=== PATIENT | female | born 1995 | race Two or more races ===

== ENCOUNTER 2023-10-26 10:25 | Emergency (ER) | payer OTHER, SELFPAY ==
[2023-10-26] VITALS (7 sets, daily range): BP systolic 77–143; BP diastolic 26–90; PULSE 51–68; RESP 14–18; TEMP 36.3–36.6; O2SAT 95–99; BMI 37.8
[2023-10-26 11:18] LABS: MANUAL DIFF FLAG NO
[2023-10-26 11:19] LABS: Basophils Percent Auto 0.4 % (0-2); Eosinophils Percent Auto 0.1 % (0-4); Hematocrit 32.3 % (37.0-47.0); Hemoglobin 10.4 g/dl (12.0-16.0); Imm Gran Abs Auto 0.04 X10*3/uL (0.00-0.03); Imm Gran Pct Auto 0.6 % (0.0-0.4); Lymphocytes Percent Auto 14.9 % (20-40); Mean Corpuscular HGB Conc 32.2 g/dl (31.0-35.0); Mean Corpuscular Hemoglobin 24.9 pg (27.0-33.0); Mean Corpuscular Volume 77.3 fL (80.0-98.0); Mean Platelet Volume 9.3 fL (9.4-12.3); Monocytes Absolute Auto 0.6 X10*3/uL (0.1-1.2); Monocytes Percent Auto 9.1 % (2-11); Neutrophils Absolute Auto 5.2 x10*3/uL (2.0-8.3); Neutrophils Percent Auto 74.9 % (45-73); Platelet Count 267 X10*3/uL (160-400); Red Blood Count 4.18 X10*6/uL (4.20-5.50); Red Cell Distribution Width 18.2 % (11.0-16.0); White Blood Count 6.9 X10*3/uL (4.8-10.8)
[2023-10-26] MEDS: 0.9 % Sodium Chloride 1,000 ML 999 ML IV ×3 (11:21→12:38)
--- NOTE | 2023-10-26 11:27 | MHC.EDTECH ---
Patient made aware that urine sample is required. Provided patient with urine cup and wipes, patient expressed understanding in clean catch urine.
--- NOTE | 2023-10-26 11:31 | PC.NURSE ---
Pt. refusing additional BP monitoring. Education provided as to the importance of repeated monitoring while her BP is at a critical level.
[2023-10-26 11:35] LABS: Alanine Aminotransferase 29 U/L (0-31); Albumin Level 4.3 g/dL (3.5-5.0); Alkaline Phosphatase 76 U/L (39-117); Anion Gap 12 (12-20); Aspartate Amino Transferase 28 U/L (5-31); Bilirubin Total 0.7 mg/dL (0.0-1.0); Blood Urea Nitrogen 9 mg/dL (9-16); Calcium 9.5 mg/dL (8.4-10.2); Carbon Dioxide 25 mmol/L (22-29); Chloride 108 mmol/L (96-108); Creatinine Clr Calc Pharmacy 131.6; Estimated Glomerular Filt Rate > 60; Ethanol < 10 mg/dL; Glucose Random 117 mg/dL (60-115); Sodium 141 mmol/L (135-145); Total Protein 7.4 g/dL (6.5-8.0)
[2023-10-26 11:39] LABS: HCG Quantitative < 2 mIU/mL
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
[2023-10-26] MEDS: methADONE HCl 20 MG/2 ML ORAL.CONC 30 MG PO (14:40)
== END 2023-10-26 15:27 | disposition home or self-care (01) ==
PROVIDERS: Physician Assistant; Emergency Provider Emergency Medicine
DX: F11.20 Opioid dependence, uncomplicated (principal); M79.672 Pain in left foot; Z59.00 Homelessness unspecified
CPT/HCPCS: 36415; 80053; 80307; 84702; 85025; 96360; 96361; 99284

== ENCOUNTER 2023-12-02 00:18 | Emergency (ER) | payer OTHER, SELFPAY ==
[2023-12-02] VITALS (7 sets, daily range): BP systolic 114–144; BP diastolic 53–92; PULSE 83–117; RESP 16–18; TEMP 36.4–36.9; O2SAT 95–99; BMI 37.8
--- NOTE | ~2023-12-02 | CT_ITS ---
EXAMINATION: CT ABDOMEN AND PELVIS WITH CONTRAST CLINICAL INFORMATION: Right lower quadrant tenderness COMPARISON: None available. TECHNIQUE: Multidetector volumetric images were obtained from the superior aspect of the liver through the pubic symphysis following administration 85 mL of Omnipaque 350 intravenous contrast. Sagittal and coronal reformatted images were obtained on the technologist's workstation. Oral contrast: No This CT examination was performed using dose optimization techniques as appropriate, variously including the following: *Automated exposure control *Adjustment of mA and/or kV according to patient size (this includes techniques or standardized protocols for targeted exams where dose is matched to indication/reason for exam; i.e. 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 L5-S1 disc space narrowing. LUNG BASES: The visualized lung bases are unremarkable. LIVER, GALLBLADDER, AND BILIARY TREE: The liver is normal in size, shape, and attenuation. No focal hepatic lesion or biliary ductal dilatation is present. The gallbladder has been surgically removed. PANCREAS: Unremarkable. SPLEEN: Unremarkable. ADRENAL GLANDS: Unremarkable. KIDNEYS AND URETERS: The kidneys are normal in size, shape, and attenuation. No hydronephrosis, hydroureter, or calculi seen. No perinephric stranding. BLADDER: Decompressed but unremarkable. GASTROINTESTINAL TRACT: Small hiatal hernia. Decompressed stomach. Nonobstructive bowel pattern. Unremarkable appendix. Moderate fecal retention.. ABDOMINAL WALL: Fat filled umbilical hernia. LYMPH NODES: No pathologic retroperitoneal lymphadenopathy. Multiple prominent mesenteric lymph nodes. VASCULAR: Unremarkable. PELVIC VISCERA: Right adnexal soft tissue density with 2.8 cm cystic region, likely ovarian. Unremarkable uterus. OSSEOUS STRUCTURES: Lumbar lordotic straightening. L5-S1 disc space narrowing and spurring. CT/CT abdomen pelvis w IV con IMPRESSION: Prominent right adnexal soft tissue structure, likely ovarian. Consider pelvic ultrasound. Fleischner guidelines were followed.
--- NOTE | 2023-12-02 00:50 | PC.NURSE ---
pt states, she didn't have here methadone, on Friday
[2023-12-02 01:11] LABS: MANUAL DIFF FLAG NO
[2023-12-02 01:12] LABS: Basophils Percent Auto 0.3 % (0-2); Eosinophils Percent Auto 0.2 % (0-4); Hematocrit 41.5 % (37.0-47.0); Hemoglobin 13.3 g/dl (12.0-16.0); Imm Gran Abs Auto 0.06 X10*3/uL (0.00-0.03); Imm Gran Pct Auto 0.5 % (0.0-0.4); Lymphocytes Absolute Auto 2.1 X10*3/uL (1.2-4.9); Mean Corpuscular Hemoglobin 23.8 pg (27.0-33.0); Mean Corpuscular Volume 74.4 fL (80.0-98.0); Mean Platelet Volume 9.4 fL (9.4-12.3); Monocytes Absolute Auto 0.7 X10*3/uL (0.1-1.2); Monocytes Percent Auto 6.1 % (2-11); Neutrophils Absolute Auto 9.2 x10*3/uL (2.0-8.3); Neutrophils Percent Auto 75.9 % (45-73); Platelet Count 285 X10*3/uL (160-400); Red Blood Count 5.58 X10*6/uL (4.20-5.50); Red Cell Distribution Width 18.7 % (11.0-16.0); White Blood Count 12.2 X10*3/uL (4.8-10.8)
[2023-12-02 01:31] LABS: Alanine Aminotransferase 27 U/L (0-31); Albumin Level 5.1 g/dL (3.5-5.0); Alkaline Phosphatase 84 U/L (39-117); Anion Gap 18 (12-20); Aspartate Amino Transferase 25 U/L (5-31); Bilirubin Direct 0.2 mg/dL (0.0-0.5); Bilirubin Total 0.8 mg/dL (0.0-1.0); Blood Urea Nitrogen 11 mg/dL (9-16); Calcium 10.4 mg/dL (8.4-10.2); Carbon Dioxide 21 mmol/L (22-29); Chloride 105 mmol/L (96-108); Creatinine Clr Calc Pharmacy 108.9; Estimated Glomerular Filt Rate > 60; Glucose Random 113 mg/dL (60-115); Lipase 12 U/L (8-78); Sodium 140 mmol/L (135-145); Total Protein 9.2 g/dL (6.5-8.0)
[2023-12-02 04:21] LABS: Appearance Urine Turbid; Color Urine Dark Yellow; Glucose Urine UA Negative (Negative); Leukocyte Esterase Urine Small (1+) (Negative); Nitrite Urine Positive (Negative); Specific Gravity - Urine >= 1.030 (1.005-1.025); UMIC TRIGGER UACC YES; Urine Blood Negative (Negative); Urine Ketones >=160 mg/dL (Negative); Urine Protein 100 (2+) mg/dL (Neg-Trace)
[2023-12-02 04:22] LABS: UPreg QC Valid YES; Urine Pregnancy NEGATIVE (NEGATIVE)
[2023-12-02 04:34] LABS: Bacteria Urine 4+ (None Seen); Squamous Epithelial Cell Urine >20 /HPF (0-2); UACC Culture Trigger YES; WBC Urine >50 /HPF (0-5)
--- NOTE | 2023-12-02 06:29 | ED.GENADULT ---
HPI - General Adult General Chief complaint: Abdominal Pain Stated complaint: abd pain n/v Time Seen by Provider: 12/02/23 06:24 Source: patient Mode of arrival: ambulatory Limitations: no limitations History of Present Illness ED Provider: candace CEDEÑO narrative: Patient is a 27-year-old female presenting to the emergency department with complaint of lower abdominal pain as well as nausea and vomiting for the past several hours. Also complains of lower back pain. Reports has vomited multiple times overnight. Denies hematemesis. Denies fever. Denies known sick contacts. Denies diarrhea. Denies urinary urgency or dysuria. Denies flank pain. Requesting dose of methadone, states she receives her doses from [facility] but is unable to state when her last dose was, states it's been a while. MD complaint: abdominal pain, nausea, vomiting Onset (ago): hour(s) Location: abdomen Radiation: non-radiation Severity: moderate Quality: aching Pain Consistency: constant Associated symptoms: nausea/vomiting Treatments prior to arrival: none Related Data Home Medications ?Medication ?Instructions ?Recorded ?Confirmed methadone 10 mg/mL oral 80 mg PO DAILY 12/02/23 12/02/23 concentrate (Methadone Intensol) Previous Rx's ?Medication ?Instructions ?Recorded acetaminophen 325 mg capsule 325 mg PO QID PRN pain #14 caps 10/26/23 (Tylenol) naproxen 500 mg tablet 500 mg PO BID 7 days #14 tabs 10/26/23 Allergies Allergy/AdvReac Type Severity Reaction Status Date / Time No Known Allergies Allergy Verified 12/02/23 00:28 Review of Systems Review of Systems: As per HPI. Yes all other systems are reviewed and are negative Constitutional: Constitutional: Reports as per HPI [facility] Social History Social History Smoked in Last 30 Days: No Advance Directives: No Advance Directives Information Provided: Yes Do you have a plan to hurt others: No Plan Physical Exam ED Vital Signs: Vital Signs - 24 hr 12/02/23 00:24 12/02/23 00:27 12/02/23 02:34 Temperature 97.8 F 97.8 F 98.4 F Pulse Rate 89 84 91 Respiratory Rate 16 17 17 Blood Pressure 114/73 114/70 120/80 Pulse Oximetry 99 95 99 Oxygen Delivery Method Room Air Room Air Room Air 12/02/23 05:45 12/02/23 07:18 12/02/23 10:00 Temperature 98.4 F 98.3 F 97.6 F Pulse Rate 83 96 117 H Respiratory Rate 17 18 18 Blood Pressure 126/77 140/53 H 133/53 L Pulse Oximetry 99 98 97 Oxygen Delivery Method Room Air Room Air Room Air BMI result Body Mass Index 37.8 Vital signs have been reviewed and appear to be correct. Blood pressure normal. Heart rate normal. Respiratory rate normal. Temperature normal. Oxygen saturation normal. Const General: cooperative, healthy appearing and no acute distress Orientation/consciousness: oriented to person, oriented to place, oriented to time and patient oriented x3 Limitations: no limitations HENMT Head: Yes normocephalic and Yes atraumatic Ears: external ears normal General nose exam: Normal external nose present Face and sinus: Yes face symmetric Mouth: oropharynx normal and moist mucous membranes Throat: Yes uvula midline Eyes Pupils: Equal, round and reactive pupils present Neck Neck: Yes normal visual inspection and Yes supple Resp Effort & Inspection: normal respiratory effort and able to speak in complete sentences Auscultation: clear to auscultation bilaterally Cardio Rate: regular rate Rhythm: regular rhythm Heart sounds: S1 normal heart sound present and S2 normal heart sound present GI Palpation (GI): Soft to palpation, Tenderness to palpation present (GI) in the RLQ, no guarding and No Rebound tenderness present Auscultation: normoactive bowel sounds General: Yes no CVA tenderness Back/Spine/Pelvis Back: no CVA tenderness Skin General skin exam: elasticity normal and turgor normal Neuro General: oriented to person, oriented to place, oriented to time, patient oriented x3, moves all extremities, no focal motor deficits and CN's II-XI intact bilaterally Cranial nerves: Yes Equal, round and reactive pupils present Cognition (Neuro): normal cognition Extrem General: Yes full ROM, Yes no pedal edema and Yes no calf tenderness Psych Mental Status: mental status grossly normal Affect: normal affect Thought process: Normal thought process present Medications Administered Discontinued Medications Generic Name Dose Route Start Last Admin Trade Name Freq PRN Reason Stop Dose Admin Sodium Chloride 1,000 mls @ 999 mls/hr 12/02/23 07:00 12/02/23 08:41 Ns IV 12/02/23 08:00 Infused .Q1H1M SYDNIE Infusion Ceftriaxone Sodium 1 gm/ 50 mls @ 100 mls/hr 12/02/23 06:54 12/02/23 07:58 Sodium Chloride IV 12/02/23 07:23 Infused ONCE ONE Infusion Iohexol 100 ml 12/02/23 07:40 12/02/23 07:41 Iohexol 350 Mg/Ml 100 Ml Infus..Btl IV 12/02/23 07:41 85 ml ONCE ONE Administration Ketorolac Tromethamine 15 mg 12/02/23 07:46 12/02/23 07:49 Ketorolac Tromethamine 15 Mg/Ml Vial IVPUSH 12/02/23 07:47 15 mg ONCE ONE Administration Ondansetron HCl 4 mg 12/02/23 06:54 12/02/23 07:23 Ondansetron Hcl 4 Mg/2 Ml Vial IVPUSH 12/02/23 06:55 4 mg ONCE ONE Administration Medical Decision Making Medical Decision Making [facility] Narrative: Patient is a 27-year-old female presenting to the emergency department with complaint of lower abdominal pain as well as nausea and vomiting for the past several hours. On exam patient is awake, A+Ox3, VS WNL, afebrile, normal neurological exam without focal deficits, physical exam findings as above. Given reported symptoms and physical exam findings, initial differential includes appendicitis, UTI/pyelonephritis, viral gastroenteritis, , ovarian cyst. Labs notable for mild leukocytosis with left shift, normal transaminases, no evidence of SHAHZAD. Urine notable for 1+ leukocytes, positive nitrites, >50 WBCs. IV ceftriaxone ordered. CT notable for prominent right adnexal mass. My interpretation is in agreement with the radiologist's interpretation. Pelvic ultrasound ordered. Patient requesting methadone dose. RN attempting to verify last methadone dose. Patient stating she wants to leave against medical advice prior to ultrasound. Risks of leaving prior to completion of evaluation discussed with patient at bedside up to and including . Patient verbalized understanding of risks and states she still wishes to leave against medical advice. Advised patient she can return to the emergency department at any time. Follow-up with primary care provider. Differential Diagnosis Differential Diagnoses: The differential diagnosis associated with the presentation includes As per [facility] Lab Data [facility] Lab Attestation statement: I reviewed the patient's lab results. As per [facility] 12/02/23 01:04 12/02/23 01:04 Labs: Lab Results 12/02/23 12/02/23 12/02/23 Range/Units 01:04 04:14 07:52 WBC 12.2 H (4.8-10.8) X10*3/uL RBC 5.58 H D (4.20-5.50) X10*6/uL Hgb 13.3 D (12.0-16.0) g/dl Hct 41.5 D (37.0-47.0) % MCV 74.4 L (80.0-98.0) fL MCH 23.8 L (27.0-33.0) pg MCHC 32.0 (31.0-35.0) g/dl RDW 18.7 H (11.0-16.0) % Plt Count 285 (160-400) X10*3/uL MPV 9.4 (9.4-12.3) fL Immature Gran % (Auto) 0.5 H (0.0-0.4) % Neut % (Auto) 75.9 H (45-73) % Lymph % (Auto) 17.0 L (20-40) % [place] % (Auto) 6.1 (2-11) % Eos % (Auto) 0.2 (0-4) % Baso % (Auto) 0.3 (0-2) % Lymph # (Auto) 2.1 (1.2-4.9) X10*3/uL [place] # (Auto) 0.7 (0.1-1.2) X10*3/uL Eos # (Auto) 0.0 (0.0-0.4) X10*3/uL Baso # (Auto) 0.0 (0.0-0.2) X10*3/uL Abs Immat Gran (auto) 0.06 H (0.00-0.03) X10*3/uL Absolute Neuts (auto) 9.2 H (2.0-8.3) x10*3/uL Absolute Nucleated RBC 0.000 (0.0-0.012) X10*3/uL Nucleated RBC % (auto) 0.0 (0.0-0.2) /100WBC Sodium 140 (135-145) mmol/L Potassium 4.0 (3.3-5.1) mmol/L Chloride 105 (96-108) mmol/L Carbon Dioxide 21 L (22-29) mmol/L Anion Gap 18 (12-20) BUN 11 (9-16) mg/dL Creatinine 0.81 (0.5-1.4) mg/dL Estim Creat Clear Calc 108.9 Estimated GFR > 60 Random Glucose 113 (60-115) mg/dL Calcium 10.4 H D (8.4-10.2) mg/dL Total Bilirubin 0.8 (0.0-1.0) mg/dL Direct Bilirubin 0.2 (0.0-0.5) mg/dL AST 25 (5-31) U/L ALT 27 (0-31) U/L Alkaline Phosphatase 84 (39-117) U/L Total Protein 9.2 H (6.5-8.0) g/dL Albumin 5.1 H (3.5-5.0) g/dL Lipase 12 (8-78) U/L Urine Color Dark Yellow Urine Appearance Turbid Urine pH 6.0 (5.0-9.0) Ur Specific [place] >= 1.030 H (1.005-1.025) Urine Protein 100 (2+) H (Neg-Trace) mg/dL Urine Glucose (UA) Negative (Negative) mg/dL Urine Ketones >=160 (Negative) mg/dL Urine Blood Negative (Negative) Urine Nitrite Positive H (Negative) Ur Leukocyte Esterase Small (1+) H (Negative) Urine RBC 3-5 H (0-2) /HPF Urine WBC >50 H (0-5) /HPF Ur Squamous Epith Cells >20 (0-2) /HPF Urine Bacteria 4+ (None Seen) Hyaline Casts 3-5 (0-2) /LPF Urine Test NEGATIVE (NEGATIVE) Influenza Type A (PCR) NEGATIVE (Negative) Influenza Type B (PCR) NEGATIVE (Negative) RSV RNA Qual (PCR) NEGATIVE (Negative) SARS-CoV-2 RNA (RT-PCR) NEGATIVE (Negative) Independent Interpretation I performed an independent interpretation of an: CT Scan Interpretation: Right adnexal mass on CT Radiology Impression Discussion of test interpretation with radiology: I have reviewed the radiologist's reading. Radiologist Impression: CT/CT abdomen pelvis w IV con IMPRESSION: Prominent right adnexal soft tissue structure, likely ovarian. Consider pelvic ultrasound. Fleischner guidelines were followed. External Record Review External record reviewed: Inpatient record, Office record and Outpatient record Discharge Plan Discharge Clinical Impression: Abdominal pain Patient Disposition: Left Against Medical Advice Additional Instructions: You were evaluated in the emergency department today for abdominal pain and chose to leave against medical advice prior to completion of your evaluation. Follow-up with your primary care provider. You can return to the emergency department at any time if you should change your mind. Prescriptions: No Action acetaminophen [Tylenol] 325 mg capsule 325 mg PO QID PRN (Reason: pain) Qty: 14 0RF naproxen 500 mg tablet 500 mg PO BID 7 Days Qty: 14 0RF methadone [Methadone Intensol] 10 mg/mL Concentrate 80 mg PO DAILY Stand Alone Forms: Against Medical Advice Print Language: Lithuanian
--- NOTE | 2023-12-02 07:07 | PC.NURSE ---
report given to Simran TALBOT
--- NOTE | 2023-12-02 07:12 | PC.NURSE ---
attempted to verify methadone dose via telephone at [facility]. staff at [facility] unavailable at this time - voicemail left. will reattempt shortly.
[2023-12-02] MEDS: 0.9 % Sodium Chloride 1,000 ML 999 ML IV (07:23)
[2023-12-02] MEDS: ondansetron HCL 4 MG/2 ML VIAL IVPUSH (07:23)
[2023-12-02] MEDS: cefTRIAXone sodium 1 GM in 0.9 % Sodium Chloride 50 ML IV (07:23)
--- NOTE | 2023-12-02 07:25 | PC.NURSE ---
20gIV placed in the right AC - IVF/medication administered per provider order. effectiveness pending. pt rating pain level a 10/10 - requesting medication at this time. provider notified/aware. pt currently being taken to CT at this time. plan of care ongoing.
[2023-12-02] MEDS: iohexoL 350 MG/ML 100 ML INFUS..BTL IV (07:41)
[2023-12-02] MEDS: Ketorolac Tromethamine 15 MG/ML VIAL IVPUSH (07:49)
--- NOTE | 2023-12-02 07:52 | PC.NURSE ---
pt returned from CT at this time. results pending. pt medicated per provider order. effectiveness pending. swabs obtained/sent to lab.
[2023-12-02 08:38] LABS: Influenza A PCR NEGATIVE (Negative); Influenza B PCR NEGATIVE (Negative); Resp Syncy Virus RNA Qual PCR NEGATIVE (Negative); SARS COV2 PCR INHOUSE NEGATIVE (Negative)
--- NOTE | 2023-12-02 09:33 | PC.NURSE ---
release of information form signed by pt/faxed to dory richards. methadone verification form filled out/faxed to [facility] pharmacy/placed in pt's chart. plan of care ongoing.
--- NOTE | 2023-12-02 09:59 | HE.PHANOTE ---
RR Methadone Received verification from from RN. Pt was receiving 80mg, last given at [facility] on 11/17/2023 @3225
--- NOTE | 2023-12-02 10:09 | PC.NURSE ---
pt becoming increasingly agitated at this time/stating that she wants to leave AMA. provider discussed risks in regards to leaving AMA. pt states she wants to leave anyway. pt signed AMA form. IV d/c'd. pt leaving ED at this time.
== END 2023-12-02 10:14 | disposition left against medical advice (07) ==
PROVIDERS: Registered Nurse Emergency; Emergency Provider Emergency Medicine
DX: R10.30 Lower abdominal pain, unspecified (principal); N39.0 Urinary tract infection, site not specified; B96.20 Unspecified Escherichia coli [E. coli] as the cause of diseases classified elsewhere; R11.2 Nausea with vomiting, unspecified; Z03.818 Encounter for observation for suspected exposure to other biological agents ruled out; Z53.29 Procedure and treatment not carried out because of patient's decision for other reasons
CPT/HCPCS: 0241U; 36415; 74177; 80048; 80076; 81001; 81025; 83690; 85025; 87086; 87088; 87186; 96361; 96374; 96375; 99284; J0696; J1885; J2405; Q9967